=== PATIENT | female | born 1980 | race Caucasian/White ===

== ENCOUNTER 2018-01-24 19:57 | Emergency (ER) | payer MEDICARE, BC, OTHER ==
[~2018-01-24] VITALS: Ht 162.6 cm; Wt 93.0 kg
[~2018-01-24 19:57] MED LIST: ADVAIR 250-501 EACH; ALBUTEROL INHAL17 GM; ALBUTEROL2.5 MG/31; ALLEGRA60 MG; AMBIENCR; BENTYL 10 MG CA10 M1 PO; BENTYL 20 MG TA20 M1 PO; BUSPAR15 MG; EXCEDRIN CAPLE1 EACH; HYDROCODONE-AP1 EAC6 PO; IBUPROFEN 800800 M1 PO; IBUPROFEN 800800 MG PO; LIPITOR10 MG; NAPROSYN500 MG PO; NEXIUM40 MG; NORFLEX100 MG PO; OPTIVAR6 ML; ROBAXIN500 MG PO; SEROQUEL XR 30300 M1; SINGULAIR 10 MG10 M1; STOOL SOFTENER50 MG; TOPAMAX50 MG; TRILEPTAL 300300 MG; ULTRAM 50MG TAB50 MG PO; VICODIN 5-5001 EACH; ZOFRAN ODT4 MG PO
[2018-01-24] MEDS ORDERED: QUETIAPINE FUM100 MG (20:12)
[2018-01-24 20:33] LABS: URINE BILIRUBIN NEGATIVE (Negative); URINE BLOOD NEGATIVE (Negative); URINE CLARITY CLEAR; URINE COLOR YELLOW; URINE GLUCOSE-RANDOM NEGATIVE (Negative); URINE KETONES NEGATIVE (Negative); URINE LEUKOCYTES-REFLEX NEGATIVE (Negative); URINE NITRITE-REFLEX NEGATIVE (Negative); URINE PROTEIN NEGATIVE (Negative); URINE SPECIFIC GRAVITY <= 1.005 (1.005-1.030); URINE UROBILINOGEN 0.2 E.U./dl (0.2-1.0)
[2018-01-24] MEDS ORDERED: TRAMADOL 50 MG50 MG PO (20:43)
[2018-01-24 21:09] VITALS: BP 127/77
== END 2018-01-24 21:10 | disposition home or self-care (01) ==
LOC: M.ERS 19:57
PROVIDERS: Physician Assistant
DX: M54.5 Low back pain (principal); J45.909 Unspecified asthma, uncomplicated; F31.9 Bipolar disorder, unspecified; F90.9 Attention-deficit hyperactivity disorder, unspecified type; F17.200 Nicotine dependence, unspecified, uncomplicated; Z90.711 Acquired absence of uterus with remaining cervical stump; Z91.041 Radiographic dye allergy status; Z88.0 Allergy status to penicillin; Z88.8 Allergy status to other drugs, medicaments and biological substances

== ENCOUNTER 2019-10-07 10:31 | Emergency (ER) | payer MEDICARE, BC, OTHER ==
[~2019-10-07] VITALS: Ht 162.6 cm; Wt 102.1 kg
[~2019-10-07 10:31] MED LIST changes: +QUETIAPINE FUM100 MG; +TRAMADOL 50 MG50 MG PO
[2019-10-07] MEDS ORDERED: MEDROLDOSEPACK PO (12:10)
[2019-10-07] MEDS ORDERED: ROBAXIN 750 MG750 MG PO (12:10)
[2019-10-07] MEDS ORDERED: TYLENOL WITH CO1 TA1 PO (12:36)
[2019-10-07 12:56] VITALS: BP 121/79
== END 2019-10-07 12:53 | disposition home or self-care (01) ==
LOC: M.ERS 10:31
DX: S16.1XXA Strain of muscle, fascia and tendon at neck level, initial encounter (principal); S09.8XXA Other specified injuries of head, initial encounter; J45.909 Unspecified asthma, uncomplicated; F31.9 Bipolar disorder, unspecified; F90.9 Attention-deficit hyperactivity disorder, unspecified type; F17.200 Nicotine dependence, unspecified, uncomplicated; Z90.711 Acquired absence of uterus with remaining cervical stump; Z91.040 Latex allergy status; Z88.0 Allergy status to penicillin; V89.2XXA Person injured in unspecified motor-vehicle accident, traffic, initial encounter; Y92.89 Other specified places as the place of occurrence of the external cause; Y93.89 Activity, other specified; Y99.8 Other external cause status